=== PATIENT | female | born 1995 | race Caucasian/White ===

== ENCOUNTER 2017-03-23 11:25 | Emergency (ER) | payer BC ==
[~2017-03-23] VITALS: Ht 165.1 cm; Wt 73.0 kg
[2017-03-23 11:25] VITALS: BP_SYST 116
[2017-03-23] MEDS ORDERED: IBUPROFEN 800 MG TABLET PO ONE (12:45)
[2017-03-23 12:47] VITALS: BP_SYST 120
== END 2017-03-23 12:47 | disposition home or self-care (01) ==
LOC: SED 11:25
DX: S39.012A Strain of muscle, fascia and tendon of lower back, initial encounter (principal); V89.2XXA Person injured in unspecified motor-vehicle accident, traffic, initial encounter; Y93.89 Activity, other specified; Y92.488 Other paved roadways as the place of occurrence of the external cause; Y99.8 Other external cause status
CPT/HCPCS: 72100-TC; 81025; 99284